=== PATIENT | male | born 1975 | race Caucasian/White ===

== ENCOUNTER 2017-04-19 20:26 | Emergency (ER) | payer BC, OTHER ==
--- NOTE | 2017-04-19 21:10 | ED ---
Chest Pain HPI - General Chief Complaint: Chest Pain Stated Complaint: chest pain Time Seen by Provider: 04/19/17 21:02 Source: patient Mode of arrival: ambulatory Limitations: no limitations - History of Present Illness Initial Comments: This patient is a 42-year-old man who presents with complaint that he was feeling lightheaded like he would pass out. He also noted some nausea and numbness of his left arm. He did also experience what he describes some he has some bloating or fullness of the epigastric area. The patient stated that all the symptoms came on around 2 hours ago while he was in the process of making cookies at home. The patient states that he has previously had both of those symptoms though not together. He states that his physician Dr. Santillan has scheduled him for a stress test to further investigate the symptoms. He has no known history of cardiac disease. The patient denies smoking history or family history of cardiac disease. MD Complaint: other Onset/Timin -: hour(s) Onset: other (Making cookies) Consistency: now resolved Improves With: nothing Worsens With: nothing Anginal Symptoms: nausea Treatments Prior to Arrival: none - Related Data Home Medications Medication Instructions Recorded Confirmed Ascorbic Acid [Vitamin C] 500 mg PO DAILY 04/19/17 04/19/17 Atorvastatin Calcium [Lipitor] 10 mg PO HS 04/19/17 04/19/17 Cholecalciferol (Vitamin D3) 2,000 unit PO DAILY 04/19/17 04/19/17 [Vitamin D3] Glucosamine-Chondr 500-400Mg 1 tab PO DAILY 04/19/17 04/19/17 Losartan/Hydrochlorothiazide 1 each PO DAILY 04/19/17 04/19/17 [Losartan-Hctz 100-12.5 mg Tab] Multivitamins, Thera [Multivitamin 1 tab PO DAILY 04/19/17 04/19/17 (formulary)] [place]-3 Fatty Acids/Fish Oil [Fish 2 cap PO DAILY 04/19/17 04/19/17 Oil 1,000 mg Softgel] Allergies Allergy/AdvReac Type Severity Reaction Status Date / Time No Known Allergies Allergy Verified 04/19/17 21:05 Review of Systems ROS Statement: Those systems with pertinent positive or pertinent negative responses have been documented in the HPI. ROS Other: All systems not noted in ROS Statement are negative. Constitutional: Denies: fever, chills, weakness Respiratory: Denies: cough, dyspnea, wheezes Cardiovascular: Reports: syncope (Near syncope). Denies: chest pain, palpitations, orthopnea, edema Gastrointestinal: Denies: abdominal pain, nausea, vomiting Genitourinary: Denies: dysuria, hematuria Musculoskeletal: Denies: back pain Skin: Denies: rash Neurological: Reports: paresthesias (Left Hand). Denies: headache, weakness, numbness EKG Findings - EKG Results: EKG: interpreted by ELAINE CASTRO, sinus rhythm (Rate approximately 65 bpm), normal axis, normal QRS, normal ST/T, no acute changes Past Medical History Past Medical History: Hyperlipidemia, Hypertension History of Any Multi-Drug Resistant Organisms: None Reported Past Surgical History: No Surgical Hx Reported Past Psychological History: No Psychological Hx Reported Smoking Status: Never smoker Past Alcohol Use History: Rare Past Drug Use History: None Reported General Exam Limitations: no limitations General appearance: alert, in no apparent distress Head exam: Present: atraumatic, normocephalic Eye exam: Present: normal appearance. Absent: scleral icterus, conjunctival injection Neck exam: Present: normal inspection Respiratory exam: Present: normal lung sounds bilaterally. Absent: respiratory distress, wheezes, rales, rhonchi, stridor Cardiovascular Exam: Present: regular rate, normal rhythm, normal heart sounds. Absent: systolic murmur, diastolic murmur, rubs, gallop GI/Abdominal exam: Present: soft. Absent: distended, tenderness, guarding, rebound, rigid, mass Extremities exam: Present: normal inspection, normal capillary refill. Absent: pedal edema, calf tenderness Back exam: Present: normal inspection. Absent: CVA tenderness (R), CVA tenderness (L) Neurological exam: Present: alert Skin exam: Present: warm, dry, intact, normal color. Absent: rash Course Vital Signs 04/19/17 04/19/17 04/19/17 20:28 21:37 23:11 Temperature 97.7 F Pulse Rate 69 57 L 62 Respiratory 20 18 17 Rate Blood Pressure 137/85 130/79 111/65 O2 Sat by Pulse 98 99 98 Oximetry 04/20/17 04/20/17 00:50 01:46 Temperature 96.9 F L Pulse Rate 73 71 Respiratory 18 18 Rate Blood Pressure 102/65 96/66 O2 Sat by Pulse 98 99 Oximetry Chest Pain MDM - MDM This patient is a 42-year-old man with a constellation of symptoms including lightheadedness, paresthesias, that have been intermittent for some time. His physician has arranged stress test that is within the next few days. His workup here is negative and he is feeling well and would like to go home. We discussed return parameters. Disposition Clinical Impression: Chest pain Disposition: HOME SELF-CARE Condition: Good Instructions: Chest Pain (ED) Referrals: Donald Santillan DO [Primary Care Provider] - 1-2 days
--- NOTE | 2017-04-19 21:48 | XR ---
EXAMINATION TYPE: XR chest 1V portable DATE OF EXAM: 04/19/2017 COMPARISON: NONE HISTORY: History of hypertension and hypercholesterolemia presents with chest pain and tightness. TECHNIQUE: Single AP portable frontal upright view of the chest is obtained. FINDINGS: Low lung volumes are present. There is no focal air space opacity, pleural effusion, or pne umothorax seen. The cardiac silhouette size is enlarged. The osseous structures are intact. IMPRESSION: Low lung volumes and cardiomegaly without suspicious acute pulmonary process.
[2017-04-19 22:27] LABS: Basophils # (A) 0.1 k/uL (0-0.2); Basophils % (A) 1 %; Eosinophils # (A) 0.4 k/uL (0-0.7); Eosinophils % (A) 4 %; HCT 46.3 % (39.0-53.0); HGB 15.4 gm/dL (13.0-17.5); Lymphocytes # (A) 3.4 k/uL (1.0-4.8); Lymphocytes % (A) 40 %; MCH 29.3 pg (25.0-35.0); MCHC 33.3 g/dL (31.0-37.0); MCV 87.9 fL (80.0-100.0); Mean Platelet Volume 7.6; Monocytes # (A) 0.6 k/uL (0-1.0); Monocytes % (A) 7 %; Neutrophils # (A) 3.9 k/uL (1.3-7.7); Neutrophils % (A) 46 %; Platelet Count 239 k/uL (150-450); RBC 5.26 m/uL (4.30-5.90); RDW 12.5 % (11.5-15.5); WBC 8.5 k/uL (3.8-10.6)
[2017-04-19 22:33] LABS: ALT 68 U/L (21-72); AST 39 U/L (17-59); Albumin 4.4 g/dL (3.5-5.0); Alkaline Phosphatase 86 U/L (38-126); Anion Gap 12 mmol/L; Blood Urea Nitrogen 16 mg/dL (9-20); Calcium 9.8 mg/dL (8.4-10.2); Carbon Dioxide 28 mmol/L (22-30); Chloride 101 mmol/L (98-107); Glucose 78 mg/dL (74-99); Magnesium 1.9 mg/dL (1.6-2.3); Potassium 4.1 mmol/L (3.5-5.1); Sodium 141 mmol/L (137-145); Total Bilirubin 0.5 mg/dL (0.2-1.3); Total Protein 7.4 g/dL (6.3-8.2)
[2017-04-19 22:37] LABS: Creatine Kinase 144 U/L (55-170)
[2017-04-19 22:46] LABS: Partial Thromboplastin Time 24.4 sec (22.0-30.0); Prothrombin Time 9.6 sec (9.0-12.0)
[2017-04-19 22:49] LABS: Creatine Kinase MB 0.8 ng/mL (0.0-2.4); Troponin I <0.012 ng/mL (0.000-0.034)
[2017-04-20 00:51] VITALS: RESP 18
[2017-04-20 01:47] VITALS: BP 96/66; PULSE 71; TEMP 96.9
== END 2017-04-20 02:41 | disposition home or self-care (01) ==
LOC: EC 20:26
DX: R07.9 Chest pain, unspecified (principal); R11.0 Nausea; R42 Dizziness and giddiness; R20.0 Anesthesia of skin; E78.5 Hyperlipidemia, unspecified; I10 Essential (primary) hypertension; Z79.899 Other long term (current) drug therapy
CPT/HCPCS: 36415; 71045; 80053; 82550; 82553; 83735; 84484; 85025; 85610; 85730; 93005; 99285

== ENCOUNTER → 2018-08-30 | Outpatient (CLI) | payer BC ==
--- NOTE | 2018-08-31 11:33 | XR ---
EXAMINATION TYPE: XR chest 2V DATE OF EXAM: 08/30/2018 COMPARISON: April 19, 2017 HISTORY: Chest pain TECHNIQUE: Frontal and lateral views of the chest are obtained. FINDINGS: There is no focal air space opacity. No evidence for pneumothorax. No pleural effusion. The cardiac silhouette size is within normal limits. The osseous structures are grossly intact. IMPRESSION: 1. No acute cardiopulmonary process.
== END | disposition home or self-care (01) ==
LOC: RADXRMAIN 16:08
PROVIDERS: ATTEND Family Medicine
DX: J98.4 Other disorders of lung (principal)
CPT/HCPCS: 71046

== ENCOUNTER → 2019-01-07 | Outpatient (CLI) | payer BC | END | disposition home or self-care (01) | LOC: CPPFTMAIN 10:17 | PROVIDERS: ATTEND Family Medicine | DX: R06.09 Other forms of dyspnea (principal) | CPT/HCPCS: 94060; 94726; 94729 ==

== ENCOUNTER → 2020-08-27 | Outpatient (CLI) | payer BC ==
--- NOTE | 2020-08-29 08:00 | MR ---
EXAMINATION TYPE: MR Prostate wo/w con DATE OF EXAM: 08/27/2020 COMPARISON: None. IMAGE QUALITY: Good. INDICATION: Prostate Ca, Hx of Melanoma, Increased PSA levels PSA: 5.1 ng/ml on July 22, 2020 Recent Biopsy and Date: June 03, 2020 Pathology Report (If Applicable): Atypical right base. Adenocarcinoma Uri 3+3 = 6 1 mm 13% core v olume. Left lateral apex rare high-grade intraepithelial neoplasia and rare atypia TECHNIQUE: Examination was performed using a 3T MRI without an endorectal coil. Multiparametric imaging was perf ormed with T2 mutliplanar sequences, axial diffusion weighted imaging and dynamic contrast enhanced i maging, utilizing 11 mL intravenous Gadavist gadolinium contrast. FINDINGS: Peripheral zone left lateral apex shows small curvilinear 11 x 4 mm area of mild to moderate hypointe nsity on ADC mapping with mild hyperintense signal on diffusion-weighted imaging image 228 series [id number], some heterogeneous postcontrast enhancement at this level is identified. PIRADS 4 lesion. There is smaller heterogeneous transitional zone. Some irregular low T2 signal in the apex slightly m ore prominent on the right with obscured margins. No restricted diffusion for reference coronal image 11. PIRADS 3 lesion. PROSTATE VOLUME: 4.3 cm SI x 3.7 cm AP x 4.7 cm LR Vol= 39.2 cc Predicted PSA equals 4.704 PSA DENSITY: 0.13 ng/ml/cc The prostate capsule maintained. Seminal vesicles appear within normal limits. Nonspecific left iliac 1.3 x 0.6 cm lymph node axial image 34 favored benign based on location. Bladder shows [id number] ate wall trabeculation. No concerning pelvic fluid collection. Osseous structures are intact. IMPRESSION: Highest Assessment Category: 4 MRI Stage: T1c N0 M0 based on review of pelvic images. False negative rates for MRI range from 5-20% depending on risk profile. Assessment Categories: 1 ? Very low (clinically significant cancer is highly unlikely to be present) 2 ? Low (clinically significant cancer is unlikely to be present) 3 ? Intermediate (the presence of clinically significant cancer is equivocal) 4 ? High (clinically significant cancer is likely to be present) 5 ? Very high (clinically significant cancer is highly likely to be present)
== END | disposition home or self-care (01) ==
LOC: RADMRIMAIN 08:37
PROVIDERS: ATTEND Urology
DX: C61 Malignant neoplasm of prostate (principal)
CPT/HCPCS: 72197; A9585

== ENCOUNTER → 2023-08-29 | Outpatient (CLI) | payer BC | END | disposition home or self-care (01) | LOC: LABWHC1 14:17 | PROVIDERS: ATTEND Nurse Practitioner | DX: C61 Malignant neoplasm of prostate (principal); Z90.79 Acquired absence of other genital organ(s) | CPT/HCPCS: 36415; 84153 ==

== ENCOUNTER → 2024-07-24 | Outpatient (CLI) | payer BC | END | disposition home or self-care (01) | LOC: LABWHC1 14:20 | PROVIDERS: ATTEND Urology | DX: Z12.5 Encounter for screening for malignant neoplasm of prostate (principal); Z85.46 Personal history of malignant neoplasm of prostate; Z90.79 Acquired absence of other genital organ(s) | CPT/HCPCS: 36415; G0103 ==